=== PATIENT | female | born 1995 | race Caucasian/White ===

== ENCOUNTER 2022-05-25 16:48 | Emergency (ER) | payer OTHER ==
[~2022-05-25] VITALS: Ht 152.4 cm; Wt 47.6 kg
[2022-05-25] MEDS ORDERED: ACETAMINOPHEN ES 500 MG TABLET PO ONE (19:00)
--- NOTE | 2022-05-25 19:21 | NUR ---
C/O HEADACHE S/P SLIP AND FALL X 3 DAYS AGO.
--- NOTE | 2022-05-25 19:22 | NUR ---
PT TAKEN TO CT SCAN
[2022-05-25] MEDS ORDERED: ACETAMINOPHEN ES 500 MG TABLET ONE (19:30)
--- NOTE | 2022-05-25 19:30 | NUR ---
PT BACK FROM CT SCAN
--- NOTE | 2022-05-25 19:48 | NUR ---
PT RECEIVED A/O X4, ROOM AIR WITH NO S/S OF RESP DISTRESS. PER PT REPORT, HAD SLIPPED AND FELL, HITTING HEAD ON PAVEMENT; HAD LOC FOR FEW SECONDS
--- NOTE | 2022-05-25 21:27 | NUR ---
COVID ANTIGEN SWAB COLLECTED AND SENT TO LAB
--- NOTE | 2022-05-25 21:35 | NUR ---
ELEVATOR PILOT AT PT'S BEDSIDE
--- NOTE | 2022-05-25 21:47 | NUR ---
DR. CHANG ON THE PHONE WITH DR. MURRELL
[2022-05-25 21:49] LABS: BASOPHILS # (AUTO) 0.1 K/uL (0.0-0.2); BASOPHILS % (AUTO) 1.3 % (0.0-2.0); EOSINOPHILS % (AUTO) 3.1 % (0.0-6.0); HEMATOCRIT 37 % (33-45); HEMOGLOBIN 12.3 g/dL (11.5-14.8); LYMPHOCYTES # (AUTO) 2.9 K/uL (0.8-4.8); LYMPHOCYTES % (AUTO) 37.8 % (20.0-44.0); MEAN CORPUSCULAR HGB CONC 34 g/dl (31.0-36.0); MEAN CORPUSCULAR VOLUME 86 fL (82-100); MONOCYTES # (AUTO) 0.4 K/uL (0.1-1.30); MONOCYTES % (AUTO) 4.9 % (2.0-12.0); NEUTROPHILS # (AUTO) 4.1 K/uL (1.8-8.9); NEUTROPHILS % (AUTO) 52.9 % (43.0-81.0); PLATELET COUNT (AUTO) 328 K/uL (150-450); RED BLOOD CELL COUNT(AUTO) 4.27 MIL/uL (4.0-5.2); WHITE BLOOD COUNT (AUTO) 7.7 K/uL (4.3-11.0)
[2022-05-25 22:14] LABS: CREATININE 0.7 mg/dL (0.6-1.3); POTASSIUM 3.7 mmol/L (3.5-5.1)
--- NOTE | 2022-05-25 22:55 | NUR ---
Patient discharged to home in stable condition. Written and verbal after care instructions given. Patient verbalizes understanding of instruction. Pt ambulatory with a steady gait
[2022-05-25 23:21] VITALS: BP 117/73
== END 2022-05-25 22:56 | disposition home or self-care (01) ==
LOC: ER 16:48
DX: R51.9 Headache, unspecified (principal); Z20.822 Contact with and (suspected) exposure to COVID-19; W01.0XXA Fall on same level from slipping, tripping and stumbling without subsequent striking against object, initial encounter; Y93.89 Activity, other specified; Y92.89 Other specified places as the place of occurrence of the external cause; Y99.8 Other external cause status
CPT/HCPCS: 99284; 70450; 87426; 85025; 80048; 36415; C9803